=== PATIENT | female | born 1960 | race Asian ===

== ENCOUNTER 2016-08-09 09:56 | Observation (INO) | payer OTHER ==
[2016-08-09 10:09] VITALS: BMI 24.7
[2016-08-09 10:39] LABS: BASOPHIL 0.6 % (0-2.0); EOSINOPHIL 4.1 % (0-4.5); MCH 29.5 pg (25.7-33.7); MCHC 33.4 g/dl (32.0-36.0); MEAN CELL VOLUME 88.1 fl (80-96); MEAN PLT VOLUME 7.9 fl (7.5-11.1); NEUTROPHILS 48.7 % (42.8-82.8); PLATELET COUNT 161 K/MM3 (134-434); RDW 13.2 % (11.6-15.6); WHITE BLOOD COUNT 4.9 K/mm3 (4.0-10.0)
[2016-08-09 11:06] LABS: ALBUMIN 3.7 g/dl (3.4-5.0); ANION GAP 4 (8-16); BILIRUBIN,TOTAL 0.5 mg/dL (0.2-1.0); CALCIUM 8.6 mg/dL (8.5-10.1); CO2 30 mmol/L (21-32); CREATININE 0.6 mg/dL (0.55-1.02); GLUCOSE,RANDOM 100 mg/dL (74-106); SGOT/AST 55 U/L (15-37); SGPT/ALT 91 U/L (12-78)
[2016-08-09 11:08] LABS: ALK PHOS 96 U/L (45-117); TROPONIN I < 0.02 ng/ml (0.00-0.05)
--- NOTE | 2016-08-09 11:24 | PDOC ---
History of Present Illness - History of Present Illness Initial Comments: 08/09/16 11:28 The patient is a 56 year old female, with a significant past medical history of hypertension (intermittently taking losartan), who presents to the emergency department from work this morning with blurred vision and a blood pressure of 189/110, which she reportedly took when her coworkers had difficulty understanding her words. The patient reports having left neck pain and left upper extremity pain, weakness and intermittent numbness since last night. She reports her left upper extremity pain radiates from her left ring finger up to her shoulder, sharp, 7/10 in severity. She denies alleviating factors for her LUE pain. The patient also reports a diffuse, sharp headache. The patient states she has not been seen by her pcp in a year and a half. She reports experiencing these symptoms a few times in the past, but denies seeking medical attention and reports her symptoms today are the worst they have every been. She denies chest pain, shortness of breath, and dizziness. She denies fever, chills, nausea, vomit, diarrhea and constipation. She denies dysuria, frequency , urgency and hematuria. Allergies: NKDA Social history: works on an airline <Mitzy Robles - Last Filed: 08/09/16 11:36> - General History Source: Patient Exam Limitations: No Limitations <Thelma Villafuerte - Last Filed: 08/09/16 12:29> - General Chief Complaint: Blood Pressure Problem Stated Complaint: BLOOD PRESSURE PROBLEM Time Seen by Provider: 08/09/16 10:16 NIH Stroke Scale - Last Known Well Date/Time & Onset Date Last Known Well: 08/09/16 Time Last Known Well: 05:00 - Initial Evaluation Level of consciousness: Alert Ask patient the month and their age: Answers both correctly Ask patient to open & close eyes; make fist and let go: Obeys both correctly Best gaze (horizontal eye movement): Normal Visual field testing: No visual field loss Facial paresis (Show teeth/raise eyebrows/close eyes tight): Normal symmetrical movement Motor Function: Left Arm: Normal Motor Function: Right Arm: Normal (extends arm 90 (or 45) degrees for 10 seconds without drift Motor Function: Left Leg: Normal (extends leg 30 degrees for 5 seconds without drift) Motor Function: Right Leg: Normal (extends leg 30 degrees for 5 seconds without drift) Limb Ataxia: No ataxia Sensory(Use pinprick test arms,legs,trunk,face/side to side): Normal Best language (Describe picture, name items, read sentences): No Aphasia Dysarthria (read several words): Normal articulation Extinction and Inattention: No abnormality - Total Score NIH Stroke Scale Score: 0 <Thelma Villafuerte - Last Filed: 08/09/16 12:29> Past History <Mitzy Robles - Last Filed: 08/09/16 11:36> - Past Medical History HTN: Yes - Psycho/Social/Smoking Cessation Hx Suicidal Ideation: No Smoking History: Never smoked Hx Alcohol Use: No Drug/Substance Use Hx: No <Thelma Villafuerte - Last Filed: 08/09/16 12:29> - Past Medical History Allergies/Adverse Reactions: Allergies Allergy/AdvReac Type Severity Reaction Status Date / Time No Known Allergies Allergy Verified 08/09/16 10:09 Home Medications: Ambulatory Orders Losartan Potassium [Cozaar -] 50 mg PO DAILY 08/09/16 Review of Systems - Review of Systems Able to Perform ROS?: Yes Comments:: 08/09/16 11:29 CONSTITUTIONAL: Absent: fever, no chills, no fatigue EYES: (+) blurred vision. ENT: Absent: ear pain, no sore throat CARDIOVASCULAR: (+) hypertension. Absent: chest pain, no palpitations RESPIRATORY: Absent: cough, no SOB GASTROINTESTINAL: Absent: abdominal pain, no nausea, no vomiting, no constipation, no diarrhea GENITOURINARY: Absent: dysuria, no frequency, no hematuria MUSCULOSKELETAL: (+) left upper extremity pain radiating from L 4th digit. Left sided neck pain. Absent: back pain, no arthralgia, SKIN: Absent: rash NEURO: (+) headache <Mitzy Robles - Last Filed: 08/09/16 11:36> *Physical Exam - Vital Signs Last Vital Signs Temp Pulse Resp BP Pulse Ox 98.6 F 63 18 163/94 98 08/09/16 10:07 08/09/16 10:07 08/09/16 10:07 08/09/16 10:08/09/16 10:07 - Physical Exam Comments: 08/09/16 11:33 GENERAL: The patient is in no acute distress. HEAD: Normal with no signs of trauma. EYES: PERRLA, EOMI, sclera anicteric, conjunctiva clear. ENT: Ears normal, nares patent, oropharynx clear without exudates. Moist mucous membranes. NECK: Normal range of motion, supple without lymphadenopathy, JVD, or masses. LUNGS: Breath sounds equal, clear to auscultation bilaterally. No wheezes, and no crackles. HEART:Regular rate and rhythm, normal S1 and S2 without murmur, rub or gallop. ABDOMEN: Soft, nontender, normoactive bowel sounds. No guarding, no rebound. No masses palpable. EXTREMITIES: Normal range of motion, no edema. No clubbing or cyanosis. No erythema, or tenderness. NEUROLOGICAL: Cranial nerves II through XII grossly intact. Normal speech. No focal neurological deficits. MUSCULOSKELETAL: Back non-tender to palpation, no CVA tenderness SKIN: Warm, Dry, normal turgor, no rashes or lesions noted. <Mitzy Robles - Last Filed: 08/09/16 11:36> - Vital Signs Last Vital Signs Temp Pulse Resp BP Pulse Ox 98.6 F 63 18 163/94 98 08/09/16 10:07 08/09/16 10:07 08/09/16 10:07 08/09/16 10:07 08/09/16 10:07 <Thelma Villafuerte - Last Filed: 08/09/16 12:29> ED Treatment Course - LABORATORY CBC & Chemistry Diagram: 08/09/16 10:30 08/09/16 10:30 - ADDITIONAL ORDERS Additional order review: Laboratory Results 08/09/16 08/09/16 10:30 10:30 Sodium 143 Potassium 4.3 Chloride 109 H Carbon Dioxide 30 Anion Gap 4 L BUN 10 Creatinine 0.6 Creat Clearance w eGFR > 60 Random Glucose 100 Calcium 8.6 Total Bilirubin 0.5 AST 55 H ALT 91 H Alkaline Phosphatase 96 Creatine Kinase 156 Troponin I < 0.02 Total Protein 8.0 Albumin 3.7 Serum , Qual Negative 08/09/16 10:30 RBC 4.33 MCV 88.1 MCHC 33.4 RDW 13.2 MPV 7.9 Neutrophils % 48.7 Lymphocytes % 35.4 Monocytes % 11.2 H Eosinophils % 4.1 Basophils % 0.6 - RADIOLOGY Radiograph Interpretation: 08/09/16 11:[address] was read by Dr. Burch at 11:33 Impression: Mild volume loss which is nonspecific. No gross acute intracranial pathology is identified. <Mitzy Robles - Last Filed: 08/09/16 11:36> - LABORATORY CBC & Chemistry Diagram: 08/09/16 10:30 08/09/16 10:30 - ADDITIONAL ORDERS Additional order review: Laboratory Results 08/09/16 10:30 Serum , Qual Negative 08/09/16 10:30 RBC 4.33 MCV 88.1 MCHC 33.4 RDW 13.2 MPV 7.9 Neutrophils % 48.7 Lymphocytes % 35.4 Monocytes % 11.2 H Eosinophils % 4.1 Basophils % 0.6 - RADIOLOGY Radiology Studies Ordered: Category Date Time Status HEAD CT WITHOUT CONTRAST [CT] Stat CT Scan 08/09/16 10:22 Ordered CHEST PA & LAT [RAD] Stat Radiology 08/09/16 10:24 Ordered <Thelma Villafuerte - Last Filed: 08/09/16 12:29> Medical Decision Making - Medical Decision Making 08/09/16 11:06 A portion of this note was documented by scribe services under my direction. I have reviewed the details of the note, within reason, and agree with the documentation with the following case summary and management plan written by me. Nursing documentation reviewed and incorporated into medical decision making This is a 56-year-old female with a history of hypertension for which he takes losartan. Patient presents emergency department due to concern by her co workers that they could not understand her She noted left neck pain, left arm pain and weakness at that time Her symptoms resolved No chest pain No palpitations She took her Losartan this morning despite that, she still had a BP of 189/100 when this happened She has NOT seen her PMD in the past 1.5 years Will do Labs, chest x-ray, head CT 08/09/16 12:27 08/09/16 12:27 08/09/16 12:28 Laboratory Tests 08/09/16 08/09/16 08/09/16 10:30 10:30 10:30 WBC 4.9 Hgb 12.8 Hct 38.1 Plt Count 161 Lymphocytes % 35.4 Monocytes % 11.2 H BUN 10 Creatinine 0.6 Random Glucose 100 AST 55 H ALT 91 H Creatine Kinase 156 CK-MB (CK-2) 1.409 Troponin I < 0.02 Serum , Qual Negative 08/09/16 12:28 Case reviewed with Hospitalist team Will place on observation Neuro consult Clinical impression: Hypertensive Urgency vs. TIA <Thelma Villafuerte - Last Filed: 08/09/16 12:29> *DC/Admit/Observation/Transfer - Attestations Scribe Attestion: 08/09/16 11:34 Documentation prepared by Mitzy Robles, acting as medical records technician for Thelma Villafuerte MD <Mitzy Robles - Last Filed: 08/09/16 11:36> - Discharge Dispostion Admit: Yes <Thelma Villafuerte - Last Filed: 08/09/16 12:29> Diagnosis at time of Disposition: Hypertensive urgency - Discharge Dispostion Condition at time of disposition: Stable - Referrals Referrals: Petty Jackson [Primary Care Provider] -
--- NOTE | 2016-08-09 12:20 | EKG ---
Test Reason : Blood Pressure : / mmHG Vent. Rate : 063 BPM Atrial Rate : 063 BPM P-R Int : 156 ms QRS Dur : 094 ms QT Int : 444 ms P-R-T Axes : 053 036 050 degrees QTc Int : 454 ms NORMAL SINUS RHYTHM RSR' OR QR PATTERN IN V1 SUGGESTS RIGHT VENTRICULAR CONDUCTION DELAY NO PREVIOUS ECGS AVAILABLE . NO CLINICAL INFORMATION IS AVAILABLE . Confirmed by SHARLENE HANNA MD ([id number]) on 08/09/2016 12:19:50 PM Referred By: Confirmed By:SHARLENE HANNA MD
--- NOTE | 2016-08-09 14:00 | HP ---
CHIEF COMPLAINT: slurred speech, left neck pain, left upper extremity pain and weakness PCP: none HISTORY OF PRESENT ILLNESS: Patient is a 56 year old female, with a significant past medical history of hypertension. Patient states that while she was at work today she experienced an episode of blurry vision and a blood pressure of 189/110. She also states that she was having left neck pain, headache and left arm weakness. She also reports intermittent left arm numbness since the night before. She states that her co-workers told her that they had difficulty understanding her words. She further reports that she has had similar symptoms in the past but her symptoms today are worse than previous. She denies chest pain, shortness of breath, or dizziness. She denies fever, chills, nausea, vomit, diarrhea and constipation. She denies dysuria, frequency , urgency or hematuria. Allergies: NKDA ER course was notable for: (1) AST 55, ALT 91 (2) Hypertension (3) Left arm weakness 4/5 (4) Head CT shows mild volume loss, no intracrainal bleeding, no midline shift (5) Troponins negative x 1 Recent Travel: denies PAST MEDICAL HISTORY: hypertension PAST SURGICAL HISTORY: Social History: Smoking: Alcohol: Drugs: Family History: Allergies No Known Allergies Allergy (Verified 08/09/16 10:09) HOME MEDICATIONS: Home Medications Medication Instructions Recorded Losartan Potassium [Cozaar -] 50 mg PO DAILY 08/09/16 REVIEW OF SYSTEMS CONSTITUTIONAL: Absent: fever, chills, diaphoresis, generalized weakness, malaise, loss of appetite, weight change HEENT: Absent: rhinorrhea, nasal congestion, throat pain, throat swelling, difficulty swallowing, mouth swelling, ear pain, eye pain, visual changes CARDIOVASCULAR: Absent: chest pain, syncope, palpitations, irregular heart rate, lightheadedness , peripheral edema RESPIRATORY: Absent: cough, shortness of breath, dyspnea with exertion, orthopnea, wheezing, stridor, hemoptysis GASTROINTESTINAL: Absent: abdominal pain, abdominal distension, nausea, vomiting, diarrhea, constipation, melena, hematochezia GENITOURINARY: Absent: dysuria, frequency, urgency, hesitancy, hematuria, flank pain, genital pain MUSCULOSKELETAL: Absent: myalgia, arthralgia, joint swelling, back pain, neck pain SKIN: Absent: rash, itching, pallor HEMATOLOGIC/IMMUNOLOGIC: Absent: easy bleeding, easy bruising, lymphadenopathy, frequent infections ENDOCRINE: Absent: unexplained weight gain, unexplained weight loss, heat intolerance, cold intolerance NEUROLOGIC: Absent: headache, focal weakness or paresthesias, dizziness, unsteady gait, seizure, mental status changes, bladder or bowel incontinence PSYCHIATRIC: Absent: anxiety, depression, suicidal or homicidal ideation, hallucinations. PHYSICAL EXAMINATION Vital Signs - 24 hr 08/09/16 13:39 Pulse Rate [ 58 L Left Radial] Respiratory 18 Rate Blood Pressure 130/82 [Right Arm] O2 Sat by Pulse 100 Oximetry (%) GENERAL: Awake, alert, and fully oriented, in no acute distress. HEAD: Normal with no signs of trauma. EYES: Pupils equal, round and reactive to light, extraocular movements intact, sclera anicteric, conjunctiva clear. No lid lag. EARS, NOSE, THROAT: Ears normal, nares patent, oropharynx clear without exudates. Moist mucous membranes. NECK: Normal range of motion, supple without lymphadenopathy, JVD, or masses. LUNGS: Breath sounds equal, clear to auscultation bilaterally. No wheezes, and no crackles. No accessory muscle use. HEART: Regular rate and rhythm, normal S1 and S2 without murmur, rub or gallop. ABDOMEN: Soft, nontender, not distended, normoactive bowel sounds, no guarding, no rebound, no masses. No hepatomegaly or splenomegaly. MUSCULOSKELETAL: Normal range of motion at all joints. No bony deformities or tenderness. No CVA tenderness. UPPER EXTREMITIES: left upper arm strength 4/5, right arm strength 5/5 LOWER EXTREMITIES: 2+ pulses, warm, well-perfused. No calf tenderness. No peripheral edema. NEUROLOGICAL: Facial symmetry, clear speech PSYCHIATRIC: Cooperative. Good eye contact. Appropriate mood and affect. SKIN: Warm, dry, normal turgor, no rashes or lesions noted, normal capillary refill. ASSESSMENT/PLAN: Patient is a 56 year old female, with a significant past medical history of hypertension. Patient states that while she was at work today she experienced an episode of blurry vision and a blood pressure of 189/110. She also states that she was having left neck pain, headache and left arm weakness. She also reports intermittent left arm numbness since the night before. She states that her co-workers told her that they had difficulty understanding her words. She further reports that she has had similar symptoms in the past but her symptoms today are worse than previous. She denies chest pain, shortness of breath, or dizziness. She denies fever, chills, nausea, vomit, diarrhea and constipation. She denies dysuria, frequency , urgency or hematuria. Cardiology: Hypertensive Urgency - acute vs. 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 Fluids: tolerating PO Electrolytes: monitor Nutrition: low sodium diet Prophylasis: GI: deferred DVT: ambulatory Disposition: Requires inpatient observation. Full code. Visit type - Emergency Visit Emergency Visit: Yes ED Registration Date: 08/09/16 Care time: The patient presented to the Emergency Department on the above date and was hospitalized for further evaluation of their emergent condition. - New Patient This patient is new to me today: Yes Date on this admission: 08/09/16 - Critical Care Critical Care patient: Yes Total Critical Care Time (in minutes): 60 Critical Care Statement: The care of this patient involved high complexity decision making to prevent further life threatening deterioration of the patient 's condition and/or to evalute & treat vital organ system(s) failure or risk of failure.
[2016-08-09] MEDS ORDERED: ASPIRIN COATED 81 MG TABLET.EC ONE (14:13)
[2016-08-09] MEDS: ASPIRIN COATED 81 MG TABLET.EC PO SCH (14:16)
[2016-08-09 15:36] LABS: CHOLESTEROL 193 mg/dL (50-200); LDL CHOLESTEROL (ONLY SJRH) 111 mg/dL (5-100)
[2016-08-09] MEDS ORDERED: ATORVASTATIN CA 20 MG TABLET (FP) PO SCH (22:00)
[2016-08-10 06:53] LABS: BASOPHIL 0.4 % (0-2.0); EOSINOPHIL 4.3 % (0-4.5); MCH 29.9 pg (25.7-33.7); MCHC 34.4 g/dl (32.0-36.0); MEAN PLT VOLUME 8.4 fl (7.5-11.1); NEUTROPHILS 48.8 % (42.8-82.8); PLATELET COUNT 153 K/MM3 (134-434); WHITE BLOOD COUNT 4.2 K/mm3 (4.0-10.0)
[2016-08-10 07:18] LABS: ALBUMIN 3.6 g/dl (3.4-5.0); ALK PHOS 82 U/L (45-117); ANION GAP 7 (8-16); BILIRUBIN,TOTAL 0.8 mg/dL (0.2-1.0); CALCIUM 8.5 mg/dL (8.5-10.1); CO2 27 mmol/L (21-32); CREATININE 0.7 mg/dL (0.55-1.02); GLUCOSE,RANDOM 105 mg/dL (74-106); MAGNESIUM 2.3 mg/dL (1.8-2.4); SGOT/AST 58 U/L (15-37); SGPT/ALT 93 U/L (12-78)
[2016-08-10 08:24] LABS: URINE APPEARANCE CLEAR; URINE BILIRUBIN NEGATIVE (NEGATIVE); URINE BLOOD NEGATIVE (NEGATIVE); URINE COLOR YELLOW; URINE GLUCOSE (UA) NEGATIVE (NEGATIVE); URINE KETONE NEGATIVE (NEGATIVE); URINE LEUK ESTERASE NEGATIVE (NEGATIVE); URINE NITRITE NEGATIVE (NEGATIVE); URINE PROTEIN NEGATIVE (NEGATIVE); URINE UROBILINOGEN NEGATIVE E.U./dl (0.2-1.0)
[2016-08-10 08:32] LABS: TROPONIN I < 0.02 ng/ml (0.00-0.05)
[2016-08-10] MEDS: ASPIRIN COATED 81 MG TABLET.EC PO SCH (09:34)
[2016-08-10] MEDS ORDERED: LOSARTAN POTASSIUM 50 MG TABLET (FP) PO SCH (10:00)
--- NOTE | 2016-08-10 10:03 | PN ---
Physical Exam: SUBJECTIVE: Patient seen and examined. She denies chest pain or discomfort. Denies dizziness, denies headache. States she has had blurry vision on and off for a few months. OBJECTIVE: Blood pressures much improved Bilateral arm strength now 5/5 No facial droop, no slurred speech Overall appears well Needs cardiology and neuro clearance prior to d/c No difficulty with swallowing, tolerating meals Checking TSH Brain MRI with contrast ordered Vital Signs Period Temp Pulse Resp BP Sys/Rowley Pulse Ox Last 24 Hr 97.7 F-98.4 F 60-98 20-20 128-154/68-80 96-98 GENERAL: Awake, alert, and fully oriented, in no acute distress. HEAD: Normal with no signs of trauma. EARS, NOSE, THROAT: Ears normal, nares patent, oropharynx clear without exudates. Moist mucous membranes. NECK: Normal range of motion, supple without lymphadenopathy, JVD, or masses. LUNGS: Breath sounds equal, clear to auscultation bilaterally. No wheezes, and no crackles. No accessory muscle use. HEART: Regular rate and rhythm, normal S1 and S2 without murmur, rub or gallop. ABDOMEN: Soft, nontender, not distended, normoactive bowel sounds, no guarding, no rebound, no masses. No hepatomegaly or splenomegaly. MUSCULOSKELETAL: Normal range of motion at all joints. No bony deformities or tenderness. No CVA tenderness. UPPER EXTREMITIES: left upper arm strength 5/5, right arm strength 5/5 LOWER EXTREMITIES: 2+ pulses, warm, well-perfused. No calf tenderness. No peripheral edema. NEUROLOGICAL: Facial symmetry, clear speech PSYCHIATRIC: Cooperative. Good eye contact. Appropriate mood and affect. SKIN: Warm, dry, normal turgor, no rashes or lesions noted, normal capillary refill. Laboratory Results - last 24 hr 08/10/16 08/10/16 08/10/16 05:35 05:35 05:35 WBC 4.2 RBC 4.27 Hgb 12.8 Hct 37.1 MCV 87.0 MCHC 34.4 RDW 13.0 Plt Count 153 MPV 8.4 Neutrophils % 48.8 Lymphocytes % 33.4 Monocytes % 13.1 H Eosinophils % 4.3 Basophils % 0.4 Sodium 140 Potassium 3.8 Chloride 106 Carbon Dioxide 27 Anion Gap 7 L BUN 11 Creatinine 0.7 Creat Clearance w eGFR > 60 Random Glucose 105 Hemoglobin A1c % 6.2 H Calcium 8.5 Magnesium 2.3 Total Bilirubin 0.8 D AST 58 H ALT 93 H Alkaline Phosphatase 82 Creatine Kinase 129 Troponin I < 0.02 Total Protein 8.0 Albumin 3.6 Urine Color Urine Appearance Urine pH Urine Protein Urine Glucose (UA) Urine Ketones Urine Blood Urine Nitrite Urine Bilirubin Urine Urobilinogen Ur Leukocyte Esterase 08/10/16 08/10/16 05:35 06:00 WBC RBC Hgb Hct MCV MCHC RDW Plt Count MPV Neutrophils % Lymphocytes % Monocytes % Eosinophils % Basophils % Sodium Potassium Chloride Carbon Dioxide Anion Gap BUN Creatinine Creat Clearance w eGFR Random Glucose Hemoglobin A1c % Calcium Magnesium Total Bilirubin AST ALT Alkaline Phosphatase Creatine Kinase Cancelled Troponin I Cancelled Total Protein Albumin Urine Color Yellow Urine Appearance Clear Urine pH 5.0 Urine Protein Negative Urine Glucose (UA) Negative Urine Ketones Negative Urine Blood Negative Urine Nitrite Negative Urine Bilirubin Negative Urine Urobilinogen Negative Ur Leukocyte Esterase Negative Active Medications Generic Name Dose Route Start Last Admin Trade Name Freq PRN Reason Stop Dose Admin Aspirin 81 mg 08/09/16 14:00 08/10/16 09:34 Ecotrin - PO 81 mg DAILY DI Administration Atorvastatin Calcium 20 mg 08/09/16 22:00 08/09/16 21:46 Lipitor - PO 20 mg HS DI Administration Losartan Potassium 50 mg 08/10/16 10:00 08/10/16 09:34 Cozaar - PO 50 mg DAILY DI Administration ASSESSMENT/PLAN: Patient is a 56 year old female, with a significant past medical history of hypertension. Patient states that while she was at work today she experienced an episode of blurry vision and a blood pressure of 189/110. She also states that she was having left neck pain, headache and left arm weakness. She also reports intermittent left arm numbness since the night before. She states that her co-workers told her that they had difficulty understanding her words. She further reports that she has had similar symptoms in the past but her symptoms today are worse than previous. She denies chest pain, shortness of breath, or dizziness. She denies fever, chills, nausea, vomit, diarrhea and constipation. She denies dysuria, frequency , urgency or hematuria. Cardiology: Hypertensive Urgency - acute vs. 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 Trops negative x 3 ASA 81mg ordered Monitor BP Cardiology following ACS Ruled out Assessment/Plan: Troponins negative x 3 EKG shows NSR - QR pattern in V1 suggests right ventricular conduction delay No chest pain, but remains hypertensive ACS ruled out by cardiology Neurology: TIA Rule Out Assessment/Plan: Episode of slurred speech, left arm weakness and numbness CT head negative, brain MRI ordered Lipid panel ordered, started patient on Lipitor 20mg @ hs hmga1c at 6.2, patient states she fill follow up as outpatient, refusing antidiabetic medications States she has been told that she is a borderline diabetic Neurology consulted F.E.N. Fluids: tolerating PO Electrolytes: monitor Nutrition: low sodium diet Prophylasis: GI: deferred DVT: ambulatory Disposition: Requires inpatient observation. Full code. Visit type - Emergency Visit Emergency Visit: Yes ED Registration Date: 08/09/16 Care time: The patient presented to the Emergency Department on the above date and was hospitalized for further evaluation of their emergent condition. - New Patient This patient is new to me today: No - Critical Care Critical Care patient: No - Discharge Referral Referred to [facility] Med [facility] No
--- NOTE | 2016-08-10 10:03 | CON.CARD ---
Consult Consult Specialty:: Cardiology Referred by:: Hospitalist Medicine Reason for Consultation:: Hypertensive urgency - History of Present Illness Chief Complaint: Dysarthia, LUE weakness, blurred vision History of Present Illness: Patient is a 56 year old female, with a significant past medical history of hypertension non-compliant with meds. Patient states that while she was at work today she experienced blurry vision and measured blood pressure of 189/ 110. She also states that she was having left neck pain, headache and left arm weakness and intermittent left arm numbness all since resolved. She states that her co-workers told her that they had difficulty understanding her words, dysarthria has also since resolved. She denies chest pain, shortness of breath, palpitations, near or true syncope, orthopnea, PND or LE edema. She denies fever, chills, nausea, vomit, diarrhea and constipation. She denies dysuria, frequency, urgency or hematuria. Allergies: NKDA - History Source History Provided By: Patient Limitations to Obtaining History: No Limitations - Alcohol/Substance Use Hx Alcohol Use: No - Smoking History Smoking history: Never smoked Home Medications - Allergies Allergies/Adverse Reactions: Allergies Allergy/AdvReac Type Severity Reaction Status Date / Time No Known Allergies Allergy Verified 08/09/16 10:09 - Home Medications Home Medications: Ambulatory Orders Losartan Potassium [Cozaar -] 50 mg PO DAILY 08/09/16 Review of Systems - Review of Systems Eyes: reports: Blurred Vision Neurological: reports: Change in Speech, Parasthesia - Risk Factors Known Risk Factors: Yes: Hypertension Vital Signs: Vital Signs Temperature 98 F 08/10/16 09:18 Pulse Rate 66 08/10/16 09:18 Respiratory Rate 20 08/10/16 09:18 Blood Pressure 144/77 08/10/16 09:18 O2 Sat by Pulse Oximetry (%) 98 08/10/16 09:00 Constitutional: Yes: No Distress, Calm Neck: Yes: Supple Respiratory: Yes: Regular, CTA Bilaterally Gastrointestinal: Yes: Normal Bowel Sounds, Soft Cardiovascular: Yes: Regular Rate and Rhythm JVD: No Carotid Bruit: No Heart Sounds: Yes: S1, S2 Edema: No - Other Data Labs, Other Data: CBC, BMP 08/10/16 05:35 08/10/16 05:35 Troponin, BNP 08/10/16 08/10/16 05:35 05:35 Troponin I < 0.02 Cancelled Troponin, BNP 08/10/16 08/10/16 05:35 05:35 Troponin I < 0.02 Cancelled NSR Tele: No PAF Ejection Fraction %: LVEF > or = 40 % Imaging - Results Chest X-ray: Report Reviewed (NAD) Cat Scan: Report Reviewed (HCT: NO acute changes) Problem List - Problems (1) Hypertensive urgency Code(s): I16.0 - HYPERTENSIVE URGENCY (2) TIA (transient ischemic attack) Code(s): G45.9 - TRANSIENT CEREBRAL ISCHEMIC ATTACK, UNSPECIFIED Qualifiers: Transient cerebral ischemia type: unspecified Qualified Code(s): G45.9 - Transient cerebral ischemic attack, unspecified (3) Noncompliance w/medication treatment due to intermit use of medication Code(s): Z91.14 - PATIENT'S OTHER NONCOMPLIANCE WITH MEDICATION REGIMEN Assessment/Plan 1. Hypertensive urgency in context of medication noncompliance 2. Dysarthria and LUE parasthesias r/o TIA P:1. Ruled out for ME, check TSH 2. Agree with ASA 81 qd, losartan 50 qd, Lipitor 20 qd, emphasized importance of medication and dietary compliance 3. Echocardiogram to assess LV and valve fxn, f/u brain MRI, child monitor r /o PAF, neuro input pending 4. Thank you for consultative opportunity
[2016-08-10 11:39] LABS: THYROID STIMULATING HORMONE 1.64 uIU/ml (0.358-3.74)
--- NOTE | 2016-08-10 19:10 | CONSULT ---
Consult - text type - Consultation Consultation Note: NEUROLOGY CONSULTATION is greatly appreciated: This 56 yo RH woman works for [employer]. H/O HTN on losartan. Admitted with elevated BP to 180 systolic associated with daily headaches x 1 week. Headaches began around the time of her , 23 years ago and persisted, usually around her menses. Headaches more common after menapause occurring 2-3/week. Onset without warning usually over the occipital region (R>L) then develop into hemicranial throbbing headaches (ipsilateral to onset) associated with prominent photophobia, phonphobia and kinesiophobia. +++ FH of headaches in her mother, 4/6 sisters and her [address] of head (reviewed): Normal MRI of Brain (reviewed): Normal with scattered subcortical microvascular changes c/w migraine headaches. KIAH: Normal NEURO: MS/speech: Normal CN II-XII: Normal Motor: No drift or tremor. Normal strength, tone and bulk. Normal reflexes. Toes downgoing. Coord: No FTN dystaxia Sensory: Normal. Romberg neg. Gait: Normal including tandem. IMP: Normal neurological exam. Migraine Headaches. SUGGEST: Add Nadolol 40 mg qd for migraine prophylaxis and BP control. Sumatriptan 50 mg PO qd PRN OK to discharge from Neuro point of view, Neuro f/u as out patient. Thank you very much, Madi Arriaga MD
[2016-08-10 23:06] VITALS: BP 155/88; PULSE 67; TEMP 98.3
--- NOTE | 2016-08-11 07:12 | DS ---
Physical Exam: SUBJECTIVE: Patient seen and examined OBJECTIVE: Vital Signs Period Temp Pulse Resp BP Sys/Rowley Pulse Ox Last 24 Hr 97.4 F-98.7 F 66-74 18-20 133-155/74-92 98-98 PHYSICAL EXAM GENERAL: The patient is awake, alert, and fully oriented, in no acute distress. HEAD: Normal with no signs of trauma. EYES: PERRL, extraocular movements intact, sclera anicteric, conjunctiva clear. ENT: Ears normal, nares patent, oropharynx clear without exudates, moist mucous membranes. NECK: Trachea midline, full range of motion, supple. LUNGS: Breath sounds equal, clear to auscultation bilaterally, no wheezes, no crackles, no accessory muscle use. HEART: Regular rate and rhythm, S1, S2 without murmur, rub or gallop. ABDOMEN: Soft, nontender, nondistended, normoactive bowel sounds, no guarding, no rebound, no hepatosplenomegaly, no masses. EXTREMITIES: 2+ pulses, warm, well-perfused, no edema. NEUROLOGICAL: Cranial nerves II through XII grossly intact. Normal speech, gait not observed. PSYCH: Normal mood, normal affect. SKIN: Warm, dry, normal turgor, no rashes or lesions noted. LABS Laboratory Results - last 24 hr 08/10/16 08/10/16 08/10/16 05:35 05:35 05:35 WBC 4.2 RBC 4.27 Hgb 12.8 Hct 37.1 MCV 87.0 MCHC 34.4 RDW 13.0 Plt Count 153 MPV 8.4 Neutrophils % 48.8 Lymphocytes % 33.4 Monocytes % 13.1 H Eosinophils % 4.3 Basophils % 0.4 Sodium 140 Potassium 3.8 Chloride 106 Carbon Dioxide 27 Anion Gap 7 L BUN 11 Creatinine 0.7 Creat Clearance w eGFR > 60 Random Glucose 105 Hemoglobin A1c % 6.2 H Calcium 8.5 Magnesium 2.3 Total Bilirubin 0.8 D AST 58 H ALT 93 H Alkaline Phosphatase 82 Creatine Kinase 129 Troponin I < 0.02 Total Protein 8.0 Albumin 3.6 TSH 1.64 Urine Color Urine Appearance Urine pH Ur Specific [place] Urine Protein Urine Glucose (UA) Urine Ketones Urine Blood Urine Nitrite Urine Bilirubin Urine Urobilinogen Ur Leukocyte Esterase 08/10/16 08/10/16 05:35 06:00 WBC RBC Hgb Hct MCV MCHC RDW Plt Count MPV Neutrophils % Lymphocytes % Monocytes % Eosinophils % Basophils % Sodium Potassium Chloride Carbon Dioxide Anion Gap BUN Creatinine Creat Clearance w eGFR Random Glucose Hemoglobin A1c % Calcium Magnesium Total Bilirubin AST ALT Alkaline Phosphatase Creatine Kinase Cancelled Troponin I Cancelled Total Protein Albumin TSH Urine Color Yellow Urine Appearance Clear Urine pH 5.0 Ur Specific [place] 1.020 Urine Protein Negative Urine Glucose (UA) Negative Urine Ketones Negative Urine Blood Negative Urine Nitrite Negative Urine Bilirubin Negative Urine Urobilinogen Negative Ur Leukocyte Esterase Negative HOSPITAL COURSE: Date of Admission:08/09/16 Date of Discharge: 08/11/16 Discharge Summary Reason For Visit: HYPERTENSIVE URGENCY Current Active Problems Hypertensive urgency (Acute) Noncompliance w/medication treatment due to intermit use of medication (Acute) TIA (transient ischemic attack) (Acute) Condition: Stable - Instructions Diet, Activity, Other Instructions: Return to Emergency department for new, persistent or worsening symptoms. Follow up with Dr. Arriaga (neurology) as recommended. Follow up with Dr. Hills (cardiology) within 2 weeks. Follow up with Dr. Lyle (new primary care provider) within 1 week. Referrals: Gabriel Damon MD [Staff Physician] - 1 Week Madi Arriaga MD [Staff Physician] - 2 Weeks Harinder Hills MD [Staff Physician] - 2 Weeks Disposition: HOME - Home Medications Comprehensive Discharge Medication List: Ambulatory Orders Losartan Potassium [Cozaar -] 50 mg PO DAILY 08/09/16 Aspirin Coated [Ecotrin -] 81 mg PO DAILY #30 tab 08/10/16 Atorvastatin Ca [Lipitor] 20 mg PO HS #30 tablet 08/10/16 Nadolol 40 mg PO DAILY #30 tablet 08/10/16 Sumatriptan Succinate [Imitrex -] 50 mg PO DAILY PRN #10 tablet 08/10/16 - Discharge Referral Referred to [facility] No
== END 2016-08-10 21:47 | disposition home or self-care (01) ==
LOC: JER 09:56 → JERBED 12:29 → UNDOADMOB 12:29 → JERBED 15:09 → J4W 15:09 → INTOOBSV 18:47 → OBSVTOIN 18:47 → J4W 18:47 → JERBED 18:47
PROVIDERS: ADMIT Internal Medicine; ATTEND Nurse Practitioner Family
DX: I16.0 Hypertensive urgency (principal); G45.9 Transient cerebral ischemic attack, unspecified; Z91.14 Patient's other noncompliance with medication regimen; G43.909 Migraine, unspecified, not intractable, without status migrainosus
CPT/HCPCS: 36415; 70450-TC; 70551-TC; 71020-TC; 80053; 80061; 81003; 82550; 82553; 83036; 83721; 83735; 84443; 84484; 84703; 85025; 93005; 93010; 93306-TC; 99285-25; G0378

== ENCOUNTER → 2018-12-10 | Day surgery (SDC) | payer OTHER ==
--- NOTE | 2018-12-13 14:59 | PATH ---
Cytology Non-Gynecological Report Patient Name: SANTOS CHAVEZ [facility]. Rec. #: [id number] /Age/Gender: 1960 (Age: 58) / F Account: [id number] Location: RADIOLOGY INTER Taken: 12/10/2018 Received: 12/10/2018 Reported: 12/13/2018 Physicians: Karina Prieto M.D. Specimen(s) Received THYROID FNA Clinical History Left lobe, 1.92 x 0.68 x 1.02 cm Final Diagnosis THYROID, LEFT, FINE NEEDLE ASPIRATION: SATISFACTORY FOR EVALUATION. BETHESDA CLASS II: BENIGN. CYTOLOGIC FINDINGS ARE CONSISTENT WITH A BENIGN FOLLICULAR NODULE WITH POST-HEMORRHAGIC CHANGE. FEW CLUSTERS OF SMALL FOLLICULAR CELLS IN A BACKGROUND OF THIN COLLOID AND NUMEROUS MACROPHAGES. Electronically Signed Renetta Sanon M.D. Gross Description Received are 2 direct smears, one is air-dried and Diff-Quik stained, and one alcohol fixed and Pap stained. Also received is 20 ml of bloody formalin from which one cellblock is prepared.
== END | disposition home or self-care (01) ==
LOC: JRADIR 10:46
PROVIDERS: ATTEND Specialist
PROC: 0G9G3ZX Drainage of Left Thyroid Gland Lobe, Percutaneous Approach, Diagnostic (ICD-10-PCS; principal; 2018-12-10)
PROC: BG44ZZZ Ultrasonography of Thyroid Gland (ICD-10-PCS; 2018-12-10)
DX: E04.1 Nontoxic single thyroid nodule (principal)
CPT/HCPCS: 76942